=== PATIENT | female | born 1960 | race Caucasian/White ===

== ENCOUNTER → 2017-01-20 | Outpatient (CLI) | payer OTHER ==
[~2017-01-20] VITALS: Ht 175.3 cm; Wt 121.5 kg
[~2017-01-20] MED LIST: BACLOFEN10 MG PO; CENTRUM SILVER1 EAC3 PO; COZAAR50 MG PO; Centrum Silver,Certa PO; DELSYM30 MG/5 M1 PO; FUROSEMIDE20 MG PO; LAMICTAL25 MG PO; LAMOTRIGINE25 M2 PO; LASIX20 MG PO; LEVAQUIN500 MG PO; LEVOTHYROXINE100 MCG PO; LEVOTHYROXINE88 MCG PO; LIORESAL10 MG PO; LOSARTAN POTASS25 MG PO; MACROBID100 MG PO; MORPHINE SULFAT15 M1 PO; OXYCONTIN10 MG PO; PHENERGAN12.5 M1 PO; PRAVACHOL40 MG PO; PRAVASTATIN SOD20 MG PO; PRISTIQ100 MG PO; PROMETHAZINE HC25 M1 PO; PROPRANOLOL HCL20 MG PO; ROBAXIN750 MG PO; SYNTHROID88 MCG PO; TIZANIDINE HCL4 M1 PO; TOPAMAX50 MG PO; TRAMADOL HCL50 MG PO; TRAZODONE HCL50 MG PO; ULTRAM ER 100100 MG PO; ULTRAM50 MG PO; XANAX1 MG PO; ZOFRAN ODT8 MG PO; ZOLOFT50 MG PO
== END | disposition home or self-care (01) ==
LOC: AMB 13:01
PROC: 0DB98ZX Excision of Duodenum, Via Natural or Artificial Opening Endoscopic, Diagnostic (ICD-10-PCS; principal; 2017-01-20)
DX: R10.9 Unspecified abdominal pain (principal); R11.10 Vomiting, unspecified; I10 Essential (primary) hypertension; E03.9 Hypothyroidism, unspecified; E78.00 Pure hypercholesterolemia, unspecified; F41.8 Other specified anxiety disorders; E66.9 Obesity, unspecified; Z86.010 Personal history of colon polyps; Z99.3 Dependence on wheelchair; Z82.49 Family history of ischemic heart disease and other diseases of the circulatory system; Z82.3 Family history of stroke; Z83.49 Family history of other endocrine, nutritional and metabolic diseases; Z79.899 Other long term (current) drug therapy; Z88.0 Allergy status to penicillin
CPT/HCPCS: 88305; 94640

== ENCOUNTER 2017-07-24 11:10 | Emergency (ER) | payer OTHER ==
[~2017-07-24] VITALS: Ht 175.3 cm; Wt 131.8 kg
[~2017-07-24 11:10] MED LIST changes: +PROVENTIL,2.5 MG/3 M IH
[2017-07-24 11:58] LABS: EOSINOPHIL (%) 1.7 % (0-5); EOSINOPHIL COUNT 0.1 K/uL (0-0.3); IMMATURE GRANULOCYTE (%) 0.4 % (0.0-0.7); INSTRUMENT ABS NEUTROPHIL CT 5.8 K/uL; LYMPHOCYTE COUNT 1.5 K/uL (1.0-2.8); MCH 31.7 PG (29.0-34.0); MCHC 33.6 G/DL (30.0-36.0); MCV 94.5 FL (83-99); MEAN PLAT.VOLUME 9.9 uM^3 (9.5-12.4); MONOCYTE COUNT 0.6 K/uL (0-0.8); NEUTROPHIL (%) 72.3 % (45-76); NEUTROPHIL COUNT 5.8 K/uL (1.8-6.4); PLATELET COUNT 212 K/uL (156-360); RBC DIS.WIDTH-CV 13.2 % (11.8-14.6); RBC DIS.WIDTH-SD 45.8 % (39-53); RED BLOOD COUNT 4.76 M/uL (3.80-5.20)
[2017-07-24 12:08] LABS: CHLORIDE 106 mEq/L (99-109); POTASSIUM 3.4 mEq/L (3.7-5.4); SODIUM 143 mEq/L (136-147)
[2017-07-24 12:09] LABS: GLUCOSE 109 mg/dL (70-99)
[2017-07-24 12:11] LABS: ANION GAP 10 MEQ/L (2-14); INTER. NORMALIZED RATIO 1.1; PROTHROMBIN TIME 12.7 SEC (10.2-12.9)
[2017-07-24 12:13] LABS: GFR ESTIMATE (CALCULATED) > 59 mL/min/
[2017-07-24 12:14] LABS: UREA NITROGEN (BUN) 15 mg/dL (9-23)
[2017-07-24 13:27] VITALS: BP 112/74
== END 2017-07-24 13:29 | disposition home or self-care (01) ==
LOC: EME 11:10
PROVIDERS: Emergency Medicine
DX: G43.909 Migraine, unspecified, not intractable, without status migrainosus (principal); I10 Essential (primary) hypertension; J45.909 Unspecified asthma, uncomplicated; Z90.49 Acquired absence of other specified parts of digestive tract; Z90.710 Acquired absence of both cervix and uterus; Z87.442 Personal history of urinary calculi
CPT/HCPCS: 70450; 80048; 85025; 85610; 99281; 99285; J2270; J2765; J7030

== ENCOUNTER → 2017-08-25 | Outpatient (CLI) | payer OTHER ==
[~2017-08-25] VITALS: Ht 175.3 cm; Wt 127.0 kg
[~2017-08-25] MED LIST changes: +AVENTYL,PAMELOR10 MG PO; +ULTRACET1 TABLET PO
== END | disposition home or self-care (01) ==
LOC: AMB 11:52
PROC: 0DBK8ZX Excision of Ascending Colon, Via Natural or Artificial Opening Endoscopic, Diagnostic (ICD-10-PCS; principal; 2017-08-25)
DX: Z12.11 Encounter for screening for malignant neoplasm of colon (principal); D12.2 Benign neoplasm of ascending colon; Z86.010 Personal history of colon polyps; K57.30 Diverticulosis of large intestine without perforation or abscess without bleeding; Q27.33 Arteriovenous malformation of digestive system vessel; I10 Essential (primary) hypertension; J45.909 Unspecified asthma, uncomplicated; M19.90 Unspecified osteoarthritis, unspecified site; M81.0 Age-related osteoporosis without current pathological fracture; Z91.011 Allergy to milk products; Z91.018 Allergy to other foods; Z88.0 Allergy status to penicillin; Z88.5 Allergy status to narcotic agent; Z88.6 Allergy status to analgesic agent
CPT/HCPCS: 88305; 93005; J2250; J2405; J3010

== ENCOUNTER 2017-10-02 17:32 | Emergency (ER) | payer OTHER ==
[~2017-10-02] VITALS: Ht 175.3 cm; Wt 131.4 kg
[2017-10-02 18:53] LABS: BASOPHIL (%) 0.3 % (0-1); EOSINOPHIL COUNT 0.2 K/uL (0-0.3); HEMATOCRIT 43.8 % (36.0-46.0); HEMOGLOBIN 14.8 G/DL (11.9-15.5); IMMATURE GRANULOCYTE (%) 0.3 % (0.0-0.7); LYMPHOCYTE (%) 15.4 % (15-42); LYMPHOCYTE COUNT 1.4 K/uL (1.0-2.8); MCH 31.8 PG (29.0-34.0); MCHC 33.8 G/DL (30.0-36.0); MONOCYTE (%) 6.6 % (3-12); MONOCYTE COUNT 0.6 K/uL (0-0.8); NEUTROPHIL (%) 75.4 % (45-76); NEUTROPHIL COUNT 6.8 K/uL (1.8-6.4); PLATELET COUNT 246 K/uL (156-360); RBC DIS.WIDTH-CV 12.9 % (11.8-14.6); RBC DIS.WIDTH-SD 44.6 % (39-53); RED BLOOD COUNT 4.66 M/uL (3.80-5.20)
[2017-10-02 19:01] LABS: CHLORIDE 106 mEq/L (99-109); POTASSIUM 4.5 mEq/L (3.7-5.4); SODIUM 141 mEq/L (136-147)
[2017-10-02 19:03] LABS: GLUCOSE 105 mg/dL (70-99)
[2017-10-02 19:06] LABS: GFR ESTIMATE (CALCULATED) > 59 mL/min/
[2017-10-02 19:07] LABS: UREA NITROGEN (BUN) 11 mg/dL (9-23)
[2017-10-02] MEDS ORDERED: DOXYCYCLINE MO100 M1 PO (21:22)
[2017-10-02] MEDS ORDERED: BACITRACIN28.4 GM TP (21:26)
[2017-10-02 21:48] VITALS: BP 129/76
== END 2017-10-02 21:49 | disposition home or self-care (01) ==
LOC: EME 17:32
DX: Z48.89 Encounter for other specified surgical aftercare (principal); I10 Essential (primary) hypertension; J45.909 Unspecified asthma, uncomplicated; G89.4 Chronic pain syndrome; Z97.8 Presence of other specified devices; F32.9 Major depressive disorder, single episode, unspecified; F41.9 Anxiety disorder, unspecified; M79.7 Fibromyalgia; K21.9 Gastro-esophageal reflux disease without esophagitis; Z88.0 Allergy status to penicillin; Z88.5 Allergy status to narcotic agent
CPT/HCPCS: 71046; 80048; 81003; 83605; 85025; 99281; 99284